=== PATIENT | female | born 1995 | race Two or more races ===

== ENCOUNTER 2016-08-12 18:56 | Emergency (ER) | payer SELFPAY ==
[2016-08-12 20:15] LABS: SPECIFIC GRAVITY 1.015 (1.001-1.030); URINE BILIRUBIN NEGATIVE (NEGATIVE); URINE BLOOD 1+ (NEGATIVE); URINE GLUCOSE (UA) 3+ (NEGATIVE); URINE LEUKOCYTE ESTERASE 1+ (NEGATIVE); URINE NITRITE POSITIVE (NEGATIVE); URINE PROTEIN 1+ (NEGATIVE); URINE UROBILINOGEN NORMAL (0-1 mg/dl)
[2016-08-12 20:20] LABS: HCG,QUALITATIVE URINE NEGATIVE
[2016-08-12 20:24] LABS: URINE APPEARANCE SL CLOUDY; URINE COLOR DARK YELLOW
[2016-08-12 20:48] LABS: URINE BACTERIA RARE; URINE EPITHELIAL CELLS 0-1 /hpf
[2016-08-12] MEDS ORDERED: CEFTRIAXONE SODIUM 500 MG ONE (21:01)
[2016-08-12] MEDS ORDERED: AZITHROMYCIN 250 MG TABLET ONE (21:02)
[2016-08-12] MEDS ORDERED: ONDANSETRON 4 MG ODT TAB ONE (21:02)
[2016-08-14 14:52] LABS: CHLAMYDIA BD Negative (Negative); N.GONORRHOEAE BD Negative (Negative); SOURCE Urine (())
== END 2016-08-12 21:25 | disposition home or self-care (01) ==
LOC: ED 18:56
DX: R30.0 Dysuria (principal); N89.8 Other specified noninflammatory disorders of vagina; E10.9 Type 1 diabetes mellitus without complications; Z79.4 Long term (current) use of insulin
CPT/HCPCS: 87491; 87591; 81025; 87086; 81001; 99283 ×2; 96372; J0696; A9270 ×2